=== PATIENT | female | born 1945 | race Asian ===

== ENCOUNTER 2019-04-07 17:38 | Inpatient (IN) | payer MEDICARE, BC ==
[~2019-04-07] VITALS: Ht 154.9 cm; Wt 50.0 kg
--- NOTE | 2019-04-07 18:55 | NUR ---
I have reviewed this patient and I concur with the Shift Assessment completed by the Licensed Practical Nurse today this shift.
--- NOTE | 2019-04-07 18:58 | NUR ---
PT ASSISTED WITH BEDPAN. PT HTN AT THIS TIME. PT STATES "MY BLOOD PRESSURE IS ALWAYS LIKE THIS." PT DENIES TAKING BP MEDS.
--- NOTE | 2019-04-07 19:20 | NUR ---
SPLINT PLACED TO L ANKLE WITH EDP DONN. PT TOLERATED WELL.
[2019-04-07 19:43] LABS: BASOPHILS 0.3 % (0-2); EOSINOPHILS 0.3 % (0-7); HEMATOCRIT 39.8 % (36.0-48.0); IMMATURE GRANULOCYTES 0.1 % (0-5); LYMPHOCYTES 19.7 % (15-50); MCH 29.8 pg (26.0-34.0); MCHC 35.2 g/dL (31.0-37.0); MCV 84.7 fL (80.0-100.0); MEAN PLATELET VOLUME 9.7 fL (7.4-10.4); MONOCYTES 6.4 % (2-11); NEUTROPHILS 73.2 % (40-80); PLATELET COUNT 326 10x3/uL (130-400); RDW 12.3 % (11.5-14.5); WBC 7.9 10x3/uL (4.8-10.8)
[2019-04-07 20:00] VITALS: BP 149/59
[2019-04-07 20:01] VITALS: BP 218/96
[2019-04-07 20:08] LABS: ANION GAP 14.3 mmol/L (8-16); BILIRUBIN - TOTAL 0.48 mg/dL (0.2-1.3); CALCIUM 10.1 mg/dL (8.5-10.1); CARBON DIOXIDE 25.4 mmol/L (21.0-32.0); CREATININE - SERUM 0.9 mg/dL (0.6-1.3); POTASSIUM - SERUM 3.7 mmol/L (3.5-5.1); PROTEIN - SERUM 8.2 g/dL (6.4-8.2)
[2019-04-07 20:19] VITALS: BP 199/89
--- NOTE | 2019-04-07 20:19 | NUR ---
BP 199/89 AFTER RECEIVING HYDRLAZINE VERBALLY ORDERED.
[2019-04-07 20:30] VITALS: BP 183/85
[2019-04-07 20:51] LABS: APTT 27.2 SECONDS (22.8-39.4); PROTIME 12.7 SECONDS (11.6-15.0)
--- NOTE | 2019-04-07 21:00 | NUR ---
PT ARRIVED ON UNIT VIA STRETCHER ESCORTED BY ER STAFF. LEFT ANKLE WITH SPLINT. IV IN LEFT HAND PATENT WITH NS INFUSING AT 75 ML / HR. WILL MONITOR FOR NEEDS.
--- NOTE | 2019-04-07 21:58 | NUR ---
STARTED MORPHINE ETHNIC STUDIES PROFESSOR PER ORDER AND TEACHING PERFORMED ON USE. GAVE SCHEDULED CLONIDINE PATCH, APPLIED TO RIGHT CHEST. WILL MONITOR FOR NEEDS.
[2019-04-08] VITALS (7 sets, daily range): BP systolic 107–198; BP diastolic 48–65; BMI 20.8
--- NOTE | 2019-04-08 05:45 | NUR ---
HIBACLENS BATH PERFORMED AND ALL LINENS CHANGED.
--- NOTE | 2019-04-08 05:50 | NUR ---
PT CONSENTED FOR AM SURGERY.
--- NOTE | 2019-04-08 19:00 | NUR ---
REPORT RECEIVED AND CARE OF PT ASSUMED. PT LYING IN SUPINE POSITION WITH EYES CLOSED AND EASY RESPIRATIONS. WILL MONITOR FOR NEEDS.
--- NOTE | 2019-04-08 22:34 | NUR ---
PT RESTING QUIETLY IN SUPINE POSITION. NO C/O OF PAIN AT THIS TIME.
[2019-04-09] VITALS: BP 110/47
[2019-04-09 04:00] VITALS: BP 127/48
[2019-04-09 04:14] LABS: BASOPHILS 0.1 % (0-2); EOSINOPHILS 0 % (0-7); HEMATOCRIT 32.6 % (36.0-48.0); IMMATURE GRANULOCYTES 0.4 % (0-5); LYMPHOCYTES 14.3 % (15-50); MCH 28.8 pg (26.0-34.0); MCHC 33.4 g/dL (31.0-37.0); MCV 86.2 fL (80.0-100.0); MEAN PLATELET VOLUME 9.7 fL (7.4-10.4); MONOCYTES 9.3 % (2-11); NEUTROPHILS 75.9 % (40-80); PLATELET COUNT 272 10x3/uL (130-400); RBC 3.78 10x6/uL (4.00-5.40); RDW 12.5 % (11.5-14.5); WBC 9.3 10x3/uL (4.8-10.8)
[2019-04-09 04:21] LABS: HEMOGLOBIN 10.9 g/dL (12-16)
[2019-04-09 04:33] LABS: CALC OSMOLALITY 281 mosm/kg (275-300); CARBON DIOXIDE 25.1 mmol/L (21.0-32.0); CHLORIDE - SERUM 107 mmol/L (98-107); CREATININE - SERUM 0.7 mg/dL (0.6-1.3); GLUCOSE 109 mg/dL (74-106); POTASSIUM - SERUM 3.4 mmol/L (3.5-5.1); SODIUM 141 mmol/L (136-145); UREA NITROGEN 12 mg/dL (7-18); eGFR NON AFRICAN AMERICAN 87 mL/min (90-120)
[2019-04-09 08:55] VITALS: BP 141/60
[2019-04-09 11:09] LABS: % SATURATION 22 % (15-55); IRON 55 ug/dl (35-150); TOTAL IRON BIND CAPACITY 240 ug/dl (260-445); UNSAT IRON BIND CAPACITY 185 ug/dl (150-375)
[2019-04-09 12:34] VITALS: BP 136/58
[2019-04-09 13:30] VITALS: Ht 154.9 cm; Wt 50.0 kg
[2019-04-09 17:33] VITALS: BP 139/61
[2019-04-09 20:00] VITALS: BP 142/59
--- NOTE | 2019-04-09 23:22 | NUR ---
rec'd. at chge of shift in bed watching tv.posterior splint with acewrap drsg. dry and intact to right ankle.toes pink and warm wiggles without difficulty. elevated on pillow.minimal swelling present will continue to monitor for any chges. in neurovascular status and follow current plan of care.
[2019-04-10 05:43] LABS: BASOPHILS 0.1 % (0-2); EOSINOPHILS 0.9 % (0-7); HEMATOCRIT 34.5 % (36.0-48.0); HEMOGLOBIN 11.7 g/dL (12-16); IMMATURE GRANULOCYTES 0.1 % (0-5); LYMPHOCYTES 27.2 % (15-50); MCH 29.5 pg (26.0-34.0); MCHC 33.9 g/dL (31.0-37.0); MCV 86.9 fL (80.0-100.0); MEAN PLATELET VOLUME 9.8 fL (7.4-10.4); MONOCYTES 8.9 % (2-11); NEUTROPHILS 62.8 % (40-80); PLATELET COUNT 276 10x3/uL (130-400); RBC 3.97 10x6/uL (4.00-5.40); RDW 12.7 % (11.5-14.5); WBC 7.4 10x3/uL (4.8-10.8)
[2019-04-10 05:51] LABS: CALC OSMOLALITY 284 mosm/kg (275-300); CALCIUM 8.4 mg/dL (8.5-10.1); CARBON DIOXIDE 27.8 mmol/L (21.0-32.0); CHLORIDE - SERUM 106 mmol/L (98-107); CREATININE - SERUM 0.8 mg/dL (0.6-1.3); GLUCOSE 97 mg/dL (74-106); POTASSIUM - SERUM 3.6 mmol/L (3.5-5.1); SODIUM 143 mmol/L (136-145); UREA NITROGEN 13 mg/dL (7-18); eGFR NON AFRICAN AMERICAN 75 mL/min (90-120)
--- NOTE | 2019-04-10 06:00 | NUR ---
I have reviewed this patient and I concur with the Shift Assessment completed by the Licensed Practical Nurse today this shift.
[2019-04-10 06:33] VITALS: BP 158/62
[2019-04-10 08:14] VITALS: BP 144/68
--- NOTE | 2019-04-10 08:48 | NUR ---
PT IS A&OX4. PT IV TO LEFT HAND INFUSING AT KVO WITH MORPHINE CARPENTRY FOREMAN. PT DRESSING TO LEFT ANKLE IS CDI. PT STATES SHE IS EXPECTING TO GO HOME TODAY. PT MEDICATIONS ADMINISTERED. PT DENEIS NEEDS. WCTM.
[2019-04-10] MEDS ORDERED: ELIQUIS2.5 MG PO (09:00)
[2019-04-10] MEDS ORDERED: HYDROCODON-ACE1 EA10 PO (09:00)
--- NOTE | 2019-04-10 10:07 | MORECARE ---
CASE MANAGEMENT DISCHARGE SUMMARY PATIENT: GIANNA SORIA UNIT: [id number] ADM DATE: 04/07/19 AGE: 73 : 47 SEX: F ROOM/BED: D.2225 AUTHOR: ALPA SANCHEZ PHYSICIAN: REFERRING PHYSICIAN: BERE SCHULTE MD DATE OF SERVICE: 04/10/19 Discharge Plan Patient Name: GIANNA SORIA Facility: [facility]:[place] : 1945 Planned Disposition: Anticipated Discharge Date: Discharge Date: Expected LOS: Initial Reviewer: [email or web address] Initial Review Date: 04/07/2019 Generated: 04/10/19 11:07 am Comments DCP- Discharge Planning Updated by [email or web address]: Arielle Farrar on 04/10/19 9:[address] PATIENT WANTS TO HAVE NEPHEW SIGN DISCHARGE IMM WHEN HE ROUNDS. AWAIT HIS ARRIVAL. DCP- Discharge Planning Updated by [email or web address]: Arielle Farrar on 04/10/19 8:[address] ORTHO EMIL ARRIAZA, MET W/ CM. PATIENT IS FOR DISCHARGE TODAY TO [place], [place] WITH HER NEPHEW. HE IS PROVIDING TRANSPORTATION. SHE ADVISED PATIENT WOULD NEED HANDS FREE KNEE CRUTCH AND WALKER. CM CALLED IMAGING AND REQUESTED XRAYS ON DISC PATIENT WILL BE FOLLOWING UP WITH MD IN [place]. HAND MOLDER MEAT IS IN AGREEMENT. CM MET WITH THE PATIENT AT THE BEDSIDE. CM HAD CALLED [facility] TO OBTAIN REQUIREMENTS FOR HANDS FREE KNEE CRUTCH. BARROS IS $149.99. INSURANCE DOES NOT COVER. PATIENT ALSO WILL NEED A WALKER. THE PATIENT ADVISED CM THAT HER NEPHEW IS OBTAINING A SCOOTER FOR HER. HE ALSO HAS A WALKER. CM ADVISED HE SHOULD BRING THE WALKER WITH HIM. NO ADDITIONAL NEEDS AT THIS TIME. Patient Name: GIANNA SORIA Page [phone] at 1007 All edits/amendments must be made on the electronic document DICTATION DATE: 04/10/19 1007 UNDERWEAR FINISHER: TYLOR 04/10/19 1007 RPT#: [id number] DC DATE: STATUS: ADM IN [facility] [address] [place] [address] END OF REPORT
--- NOTE | 2019-04-10 10:57 | NUR ---
PT DISCHARGE INSTRUCTIONS REV'D. PT STATES UNDERSTANDING. PT REQUESTED PRESCRIPTION FOR LISINOPRIL. WAITNG FOR DR TO PROVIDE. PT NEPHEW HERE. SOON PRESCRIPTION REV'D PT WILL DISCHARGE WTIH NEPHEW.
[2019-04-10] MEDS ORDERED: LISINOPRIL10 MG PO (12:08)
--- NOTE | 2019-04-10 12:43 | NUR ---
PT DISCHARGED VIA WHEELCHAIR ACCOMPANIED BY HOSPITAL STAFF AND NEPHEW. PT PROVIDED WITH ADDITIONAL PRESCRIPTION FOR LISONPRIL. PT GOING HOME WITH NEPHEW AT THIS TIME.
--- NOTE | 2019-04-10 15:00 | OP ---
PATIENT NAME: GIANNA SORIA MEDICAL RECORD: [id number] :[birth year] LOCATION:D.MS [id number] ADMISSION DATE:04/07/19 SURGEON: BERE SCHULTE MD DATE OF OPERATION: 04/08/2019 PREOPERATIVE DIAGNOSIS: Left trimalleolar ankle fracture. POSTOPERATIVE DIAGNOSIS: Left trimalleolar ankle fracture. PROCEDURE: Open reduction internal fixation of left bimalleolar ankle fracture. SURGEON: Bere Schulte MD FLAP CURER: Blake Turner. ANESTHESIA: General. INTRAOPERATIVE COMPLICATIONS: None. SUMMARY OF PATHOLOGIC FINDINGS: The patient had a displaced lateral malleolus fracture and a comminuted medial malleolus fracture. The medial malleolus was split in 2; however, it fixed nicely with compression screws by Fixos. OPERATIVE SUMMARY IN DETAIL: After obtaining the appropriate preoperative orthopedic surgery consent as well as anesthetic consultation, evaluation and clearance, the patient was brought to the operating room and placed on the operating table in supine position. After general laryngeal mask airway was administered, tourniquet was placed about the proximal aspect of the left lower extremity. Left lower extremity was then prepped and draped in routine sterile fashion. The leg was elevated and exsanguinated, tourniquet was inflated to 350 mmHg. At this point, the appropriate timeout was agreed upon by all. A mid lateral incision was made over the fibula under fluoroscopic guidance, taken down to the level of the fibula. The fibula was cleansed of all fragmentary hematoma. The fibula was reduced, provisionally pinned with an 0.062 K-wire. Plate was then introduced and again under fluoroscopic control, serial and sequential drill and fill technique was utilized to fix the lateral fibula. Again, having completed this, attention was turned to the medial side. An incision was made, taken down to the level of the fracture. The fracture was gently cleansed of all hematoma as well as periosteum. It was noted that there was a T-type fracture of the distal medial malleolus. The anterior aspect, which was held in perfect anatomic scientologist while it was fixed with a guidewire for the 4.0 compression Fixos screws. After this guidewire was put into place, a fracture clamp was utilized to hold the posterior aspect of the medial malleolus in place and that likewise was fixed with a guidewire. Two 44 mm compression screws cannulated from the Fixos system were then placed across this holding the fragments nicely together with the fracture clamp. This was again done under fluoroscopy, both AP and lateral views showed the patient had anatomic scientologist of the ankle mortise. Having completed this, the wounds were copiously irrigated and closed with #1 Vicryl, 2-0 Vicryl as well as skin melani. Sterile dressings were applied. The tourniquet was deflated. Posterior L&U splint was applied. The patient will likely follow up at the [facility] in [place] as she is a visitor here. All final needle and sponge counts were correct. TRANSINT:[id number] Voice Confirmation ID: [id number] DOCUMENT ID: [id number] OPERATIVE REPORT [id number] GIANNA SORIA MD, BERE LOZA at 1500 CC: [id number] DICTATION DATE: 04/10/19933 ADMINISTRATIVE SECRETARY: 04/10/19 1108 DIS IN 04/10/19 [id number] [place] [address]
[2019-04-10 17:08] LABS: FOLATE (FOLIC ACID) - SERUM 9.7 ng/mL (>3.0)
--- NOTE | 2019-04-10 18:04 | MORECARE ---
CASE MANAGEMENT DISCHARGE SUMMARY PATIENT: GIANNA SORIA UNIT: [id number] ADM DATE: 04/07/19 AGE: 73 : [birth year] SEX: F ROOM/BED: D.2225 AUTHOR: LAURA,DOC PHYSICIAN: REFERRING PHYSICIAN: BERE SCHULTE MD DATE OF SERVICE: 04/10/19 Discharge Plan Patient Name: GIANNA SORIA Facility: [facility]:[place] : 1945 Planned Disposition: Anticipated Discharge Date: Discharge Date: 04/10/2019 Expected LOS: Initial Reviewer: [email or web address] Initial Review Date: 04/07/2019 Generated: 04/10/19 7:04 pm Comments DCP- Discharge Planning Updated by [email or web address]: Arielle Farrar on 04/10/19 5:[address] LATE [id number] THE PATIENT'S NEPHEW CAME TO THE DESK. CM MET WITH HIM. HE DISCUSSED DISCHARGE IMM. SIGNATURE OBTAINED FROM THE PATIENT.. HE DID NOT BRING A WALKER. TC TO [facility] [place] [facility].DISCUSSED WALKER. THEY DID NOT HAVE DELIVERY. CM DIRECTED THE NEPHEW TO [facility]. HE WAS GOING TO DISK RECORDIST THE WALKER, PAPERWORK HAND DELIVERED. NEPHEW RETURNED W/ A KNEE WALKER. PATIENT FOR DISCHARGE TO NEPHEW'S HOME IN [place]. SHE HAS D/C SUMMARY, CONSULT NOTES AND X/R DISC FOR FOLLOWUP CARE. DCP- Discharge Planning Updated by [email or web address]: Arielle Farrar on 04/10/19 9:[address] PATIENT WANTS TO HAVE NEPHEW SIGN DISCHARGE IMM WHEN HE ROUNDS. AWAIT HIS ARRIVAL. DCP- Discharge Planning Updated by [email or web address]: Arielle Farrar on 04/10/19 8:[address] ORTHO EMIL ARRIAZA, MET W/ CM. PATIENT IS FOR DISCHARGE TODAY TO [place], [place] WITH HER NEPHEW. HE IS PROVIDING TRANSPORTATION. SHE ADVISED PATIENT WOULD NEED HANDS FREE KNEE CRUTCH AND WALKER. АНДРЕЙ CALLED IMAGING AND REQUESTED XRAYS ON DISC PATIENT WILL BE FOLLOWING UP WITH MD IN [place]. VENEER SPLICER IS IN AGREEMENT. CM MET WITH THE PATIENT AT THE BEDSIDE. CM HAD CALLED [facility] TO OBTAIN REQUIREMENTS FOR HANDS FREE KNEE CRUTCH. BARROS IS $149.99. INSURANCE DOES NOT COVER. PATIENT ALSO WILL NEED A WALKER. THE PATIENT ADVISED CM THAT HER NEPHEW IS OBTAINING A SCOOTER FOR HER. HE ALSO HAS A WALKER. CM ADVISED HE SHOULD BRING THE WALKER WITH HIM. NO ADDITIONAL NEEDS AT THIS TIME. Coverage Notice Reviewer: [email or web address] Godfrey RitchieArielle [place] Notice Issued Date-Time: 04/10/2019 11:35 Notice Type: IM Discharge Notice Notice Delivered To: Patient Relationship to Patient: Self Hot Wound [employer] Production Supervisor Name: Delivery Method: HAND - Hand Delivered Taniya Days: Prior Verbal Notification: Recipient Understood Notice: Yes Recipient Signature: Yes Med Rec Note Co-signed by Attending: Coverage Notice Comment: DISCHARGE IMM SERVED AFTER NEPHEW ARRIVED. PT ANXIOUS FOR DISCHARGE. STATED SHE UNDERSTOOD. Last DP export: 04/10/19 9:07 a Patient Name: GIANNA SORIA Page [phone] at 1804 All edits/amendments must be made on the electronic document DICTATION DATE: 04/10/191802 HORSE DOCTOR: TYLOR 04/10/191802 RPT#: [id number] DC DATE:04/10/19 STATUS: DIS IN [facility] [address] [place] [address] END OF REPORT
== END 2019-04-10 12:44 | disposition home or self-care (01) | DRG 493 ==
LOC: D.ER 17:38 → D.MS 19:21
PROVIDERS: Emergency Medicine; Family Medicine; Internal Medicine Nephrology; ADMIT Orthopaedic Surgery; ATTEND Orthopaedic Surgery
PROC: 0QSK04Z Reposition Left Fibula with Internal Fixation Device, Open Approach (ICD-10-PCS; principal; 2019-04-09)
DX: S82.852A Displaced trimalleolar fracture of left lower leg, initial encounter for closed fracture (principal); D62 Acute posthemorrhagic anemia; W19.XXXA Unspecified fall, initial encounter; I16.0 Hypertensive urgency